=== PATIENT | male | born 1955 | race Caucasian/White ===

== ENCOUNTER 2017-11-07 10:58 | Emergency (ER) | payer MEDICARE, OTHER ==
[~2017-11-07] VITALS: Ht 177.8 cm; Wt 130.2 kg
[~2017-11-07 10:58] MED LIST: GEN0.3OS OP
[2017-11-07 12:41] LABS: BASOPHILS % (AUTO) 0.3 % (0-1); EOSINOPHILS # (AUTO) 0.3 X10'3 (0-0.9); EOSINOPHILS % (AUTO) 3.6 % (0-6); HEMOGLOBIN 17.8 g/dl (14.0-17.9); LYMPHOCYTES # (AUTO) 2.1 X10'3 (1.1-4.8); MEAN CORPUSCULAR HEMOGLOBIN 31.3 PG (27.0-31.0); MEAN CORPUSCULAR HGB CONC 33.7 % (33.0-36.5); MEAN PLATELET VOLUME 8.7 FL (7.4-10.4); MONOCYTES # (AUTO) 0.4 X10'3 (0-0.9); MONOCYTES % (AUTO) 4.4 % (2-12); NEUTROPHILS % (AUTO) 67.7 % (42-75); PLATELET COUNT 226 X10'3 (140-440); RED BLOOD COUNT 5.69 X10'6 (4.70-6.10); RED CELL DISTRIBUTION WIDTH 14.4 % (11.5-14.5); WHITE BLOOD COUNT 8.8 X10'3 (4.5-11.0)
[2017-11-07 12:50] LABS: PROTHROMBIN TIME 10.5 SECONDS (9.0-12.0)
[2017-11-07 12:55] LABS: ALANINE AMINOTRANSFERASE 80 U/L (12-78); ALBUMIN 3.6 G/DL (3.4-5.0); ALKALINE PHOSPHATASE 135 IU/L (46-116); ANION GAP 5 (8-16); ASPARTATE AMINO TRANSFERASE 39 U/L (10-37); BILIRUBIN,TOTAL 0.4 MG/DL (0.1-1.0); BLOOD UREA NITROGEN 12 MG/DL (7-18); BUN/CREATININE RATIO 10.3 (5.4-32.0); CALCIUM 8.1 MG/DL (8.5-10.1); CHLORIDE 103 MMOL/L (99-107); CREATININE 1.16 MG/DL (0.60-1.10); GLUCOSE 394 MG/DL (70-104); POTASSIUM 4.5 MMOL/L (3.5-5.1); SODIUM 137 MMOL/L (135-145); TOTAL PROTEIN 7.3 G/DL (6.4-8.2); eGFR 64 ML/MIN
[2017-11-07] MEDS ORDERED: normal saline 1000ML IV soln IVB ONE (14:15)
[2017-11-07] MEDS ORDERED: insulin regular, human 10 units/0.1 ml syringe SQ ONE ×2 (14:20)
[2017-11-07 17:14] LABS: CLARITY,URINE CLEAR (Clear); COLOR,URINE YELLOW (Yellow); GLUCOSE, URINE >=1000 mg/dl (Neg); KETONES,URINE NEGATIVE (Neg); LEUKOCYTE ESTERASE ,URINE NEGATIVE (Neg); NITRITES, URINE NEGATIVE (Neg); OCCULT BLOOD,URINE NEGATIVE (Neg); PH,URINE 5.5 (4.8-8.0); PROTEIN,URINE NEGATIVE (Neg); UROBILINOGEN,URINE 0.2 E.U/dL (0.2-1.0)
[2017-11-07 17:15] LABS: UA COLLECTION TYPE URINAL
[2017-11-07 17:20] LABS: BACTERIA,URINE NONE SEEN /HPF (Neg); MUCUS STRANDS NONE SEEN /LPF (Neg); RBC,URINE NONE SEEN /HPF (0-2); SQUAMOUS EPITHELIAL CELL,UR FEW /LPF (FEW); WBC,URINE 0-4 /HPF (0-4)
[2017-11-07] MEDS ORDERED: METF-516 PO (17:32)
[2017-11-07] MEDS ORDERED: METF500T PO (17:32)
[2017-11-07] MEDS ORDERED: NYST1000 PO (17:33)
[2017-11-07 17:56] VITALS: BP 144/78
== END 2017-11-07 17:58 | disposition home or self-care (01) ==
LOC: ER 11:00
DX: E11.65 Type 2 diabetes mellitus with hyperglycemia (principal); B37.9 Candidiasis, unspecified; I10 Essential (primary) hypertension; E78.00 Pure hypercholesterolemia, unspecified; G89.29 Other chronic pain; Z79.84 Long term (current) use of oral hypoglycemic drugs; Z79.899 Other long term (current) drug therapy
CPT/HCPCS: 36415; 80053; 81001; 82948; 85025; 85610; 96360; 96361; 96372; 99285; J1815; J7030

== ENCOUNTER 2018-02-01 11:54 | Outpatient (CLI) | payer MEDICARE ==
[~2018-02-01 11:54] MED LIST changes: +METF-516 PO
[2018-02-01 13:42] LABS: BASOPHILS % (AUTO) 0.3 % (0-1); EOSINOPHILS # (AUTO) 0.3 X10'3 (0-0.9); LYMPHOCYTES # (AUTO) 2.4 X10'3 (1.1-4.8); LYMPHOCYTES % (AUTO) 23.5 % (21-51); MEAN CORPUSCULAR HEMOGLOBIN 31.7 PG (27.0-31.0); MEAN CORPUSCULAR HGB CONC 33.8 % (33.0-36.5); MEAN CORPUSCULAR VOLUME 93.7 FL (78-98); MEAN PLATELET VOLUME 8.6 FL (7.4-10.4); MONOCYTES # (AUTO) 0.5 X10'3 (0-0.9); MONOCYTES % (AUTO) 4.7 % (2-12); NEUTROPHILS # (AUTO) 7.1 X10'3 (1.8-7.7); NEUTROPHILS % (AUTO) 68.5 % (42-75); PRE OP HEMATOCRIT 53.6 % (42.0-52.0); PRE OP PLATELET COUNT 264 X10'3 (140-440); RED BLOOD COUNT 5.71 X10'6 (4.70-6.10); RED CELL DISTRIBUTION WIDTH 14.3 % (11.5-14.5)
[2018-02-01 13:46] LABS: PRE OP HEMOGLOBIN 18.1 g/dL (14.0-17.9)
[2018-02-01] MEDS ORDERED: ROSU5TAB18 PO (13:57)
[2018-02-01] MEDS ORDERED: HYDR-3972 PO (13:57)
[2018-02-01] MEDS ORDERED: CYCL-145 PO (13:57)
[2018-02-01] MEDS ORDERED: MORP60TA66 PO (13:57)
[2018-02-01] MEDS ORDERED: TAMS0.4C32 PO (13:57)
[2018-02-01] MEDS ORDERED: ZOLP10TA5 PO (13:57)
[2018-02-01 14:00] LABS: ALBUMIN 3.7 G/DL (3.4-5.0); ALBUMIN/GLOBULIN RATIO 0.9 (1.1-1.5); ALKALINE PHOSPHATASE 91 IU/L (46-116); BLOOD UREA NITROGEN 15 MG/DL (7-18); BUN/CREATININE RATIO 14.6 (5.4-32.0); CALCIUM 8.9 MG/DL (8.5-10.1); CHLORIDE 103 MMOL/L (99-107); CREATININE 1.03 MG/DL (0.60-1.10); PRE OP ALT 54 U/L (30-65); PRE OP ANION GAP 8 (8-16); PRE OP AST 25 U/L (10-37); PRE OP BILIRUB, TOTAL 0.4 MG/DL (0.0-1.0); PRE OP SODIUM 140 MMOL/L (135-145); TOTAL CARBON DIOXIDE 28.7 MMOL/L (24-32); TOTAL PROTEIN 7.6 G/DL (6.4-8.2); eGFR 73 ML/MIN
[2018-02-01 14:04] LABS: PRE OP GLUCOSE 279 MG/DL (70-104)
[2018-02-01 15:35] LABS: HEMOGLOBIN A1C 8.8 % (4.5-6.2)
[2018-02-04] MEDS ORDERED: LEVO25TA7 PO (09:33)
[2018-02-04] MEDS ORDERED: DICL100G15 TOP (09:33)
== END 2018-02-01 23:59 | disposition home or self-care (01) ==
LOC: PRE-OP 11:54 → EDSTATUS 02-05 09:00
PROVIDERS: ATTEND Orthopaedic Surgery Hand Surgery
DX: Z01.818 Encounter for other preprocedural examination (principal); R94.31 Abnormal electrocardiogram [ECG] [EKG]; M18.0 Bilateral primary osteoarthritis of first carpometacarpal joints
CPT/HCPCS: 36415; 80053; 83036; 85025; 93005

== ENCOUNTER 2018-02-05 06:50 | Day surgery (SDC) | payer MEDICARE ==
[~2018-02-05] VITALS: Ht 188 cm; Wt 128.0 kg
[~2018-02-05 06:50] MED LIST changes: +BUPIVAcaine/PF 2.5 mg/ml (0.25%) 30ml vial ONE; +CYCL-145 PO; +DICL100G15 TOP; -GEN0.3OS OP; +HYDR-3972 PO; +LEVO25TA7 PO; +LIDOcaine 1% (10mg/ml) 2ml vial ONE; -METF-516 PO; +MORP60TA66 PO; +ROSU5TAB18 PO; +TAMS0.4C32 PO; +ZOLP10TA5 PO; +famotidine 20mg tablet PO ONE; +ringers solution, lacted 1,000 ML IV SCH
[2018-02-05 07:00] VITALS: BP 136/85
[2018-02-05] MEDS ORDERED: ceFAZolin 2gm in dextrose, iso 100 ML IV SCH (08:00)
[2018-02-05] MEDS ORDERED: ondansetron/PF 4mg/2ml inj IV PRN (08:25)
[2018-02-05] MEDS ORDERED: ringers solution, lacted 1,000 ML IV SCH (08:25)
[2018-02-05] MEDS ORDERED: morphine 4 MG/ML inj SYRINge IV PRN ×2 (08:25)
[2018-02-05] MEDS ORDERED: proCHLORperazine 10 MG/2 ml inj IV PRN (08:25)
[2018-02-05] MEDS ORDERED: meperidine/PF 50mg/ml syringe IV PRN ×3 (08:25)
[2018-02-05] MEDS ORDERED: LIDOcaine 0.5% (5mg/ml) 50ml vial ONE (08:48)
[2018-02-05] MEDS ORDERED: fentaNYL/PF 50MCG/1 ML 2ML syringe ONE ×2 (08:50→08:59)
[2018-02-05] MEDS ORDERED: midazolam 2 mg/2 ml injection ONE ×2 (08:50→09:11)
[2018-02-05] MEDS ORDERED: propofol inj 20 ML IV ONE (09:22)
[2018-02-05 09:38] VITALS: BP 135/85
[2018-02-05 09:48] VITALS: BP 157/99
[2018-02-05 09:58] VITALS: BP 154/98
== END 2018-02-05 10:18 | disposition home or self-care (01) ==
LOC: PAS 06:50
PROVIDERS: ATTEND Orthopaedic Surgery Hand Surgery
DX: M18.12 Unilateral primary osteoarthritis of first carpometacarpal joint, left hand (principal); M25.742 Osteophyte, left hand; I25.2 Old myocardial infarction; I25.10 Atherosclerotic heart disease of native coronary artery without angina pectoris; E11.9 Type 2 diabetes mellitus without complications; G89.29 Other chronic pain; J44.9 Chronic obstructive pulmonary disease, unspecified; E03.9 Hypothyroidism, unspecified; I50.9 Heart failure, unspecified; Z79.1 Long term (current) use of non-steroidal anti-inflammatories (NSAID); Z95.1 Presence of aortocoronary bypass graft; Z98.890 Other specified postprocedural states; Z79.82 Long term (current) use of aspirin; Z87.891 Personal history of nicotine dependence; Z79.899 Other long term (current) drug therapy
CPT/HCPCS: 25445; 82948; A6449; J0690; J2001; J2250; J2704; J3010; J3490; J7120; L8630; A7000

== ENCOUNTER 2018-08-13 09:22 | Day surgery (SDC) | payer MEDICARE, MEDICAID ==
[2018-08-06 14:34] LABS: BASOPHILS % (AUTO) 0.5 % (0-1); EOSINOPHILS # (AUTO) 0.4 X10'3 (0-0.9); EOSINOPHILS % (AUTO) 4.1 % (0-6); LYMPHOCYTES # (AUTO) 2.7 X10'3 (1.1-4.8); LYMPHOCYTES % (AUTO) 31.3 % (21-51); MEAN CORPUSCULAR HEMOGLOBIN 32.7 PG (27.0-31.0); MEAN CORPUSCULAR HGB CONC 34.4 % (33.0-36.5); MEAN CORPUSCULAR VOLUME 94.9 FL (78-98); MEAN PLATELET VOLUME 8.7 FL (7.4-10.4); MONOCYTES # (AUTO) 0.5 X10'3 (0-0.9); MONOCYTES % (AUTO) 5.4 % (2-12); NEUTROPHILS % (AUTO) 58.7 % (42-75); PRE OP HEMATOCRIT 49.5 % (42.0-52.0); PRE OP PLATELET COUNT 255 X10'3 (140-440); RED BLOOD COUNT 5.22 X10'6 (4.70-6.10); RED CELL DISTRIBUTION WIDTH 13.1 % (11.5-14.5)
[2018-08-06 14:47] LABS: HEMOGLOBIN A1C 8.8 % (4.5-6.2)
[2018-08-06 14:48] LABS: ALBUMIN 3.5 G/DL (3.4-5.0); ALKALINE PHOSPHATASE 92 IU/L (46-116); BLOOD UREA NITROGEN 13 MG/DL (7-18); BUN/CREATININE RATIO 12.4 (5.4-32.0); CALCIUM 8.6 MG/DL (8.5-10.1); CHLORIDE 102 MMOL/L (99-107); CREATININE 1.05 MG/DL (0.60-1.10); PRE OP ALT 48 U/L (30-65); PRE OP ANION GAP 9 (8-16); PRE OP AST 23 U/L (10-37); PRE OP BILIRUB, TOTAL 0.3 MG/DL (0.0-1.0); PRE OP POTASSIUM 3.9 MMOL/L (3.4-5.1); PRE OP SODIUM 139 MMOL/L (135-145); TOTAL CARBON DIOXIDE 28.2 MMOL/L (24-32); TOTAL PROTEIN 7.1 G/DL (6.4-8.2); eGFR 71 ML/MIN
[2018-08-06 14:55] LABS: PRE OP GLUCOSE 268 MG/DL (70-104)
[~2018-08-13] VITALS: Ht 188 cm; Wt 129.3 kg
[~2018-08-13 09:22] MED LIST changes: -BUPIVAcaine/PF 2.5 mg/ml (0.25%) 30ml vial ONE; -DICL100G15 TOP; -HYDR-3972 PO; -LIDOcaine 1% (10mg/ml) 2ml vial ONE; -MORP60TA66 PO; +ROSU5TAB11 PO; -ROSU5TAB18 PO; +cefazolin/dext.iso 2gm/100 ML IV ONE
[2018-08-13] MEDS ORDERED: LIDOcaine 0.5% (5mg/ml) 50ml vial ONE (11:19)
[2018-08-13 11:56] VITALS: BP 143/86
[2018-08-13 11:57] VITALS: BP 143/86
[2018-08-13] MEDS ORDERED: ringers solution, lacted 1,000 ML IV SCH (12:01)
[2018-08-13] MEDS ORDERED: morphine 4 MG/ML inj SYRINge IV PRN ×2 (12:05)
[2018-08-13] MEDS ORDERED: meperidine/PF 25mg/ml syringe IV PRN ×3 (12:05)
[2018-08-13] MEDS ORDERED: ondansetron/PF 4mg/2ml inj IV PRN (12:05)
[2018-08-13] MEDS ORDERED: proCHLORperazine 10 MG/2 ml inj IV PRN (12:05)
[2018-08-13] MEDS ORDERED: BUPIVAcaine/PF 2.5mg/ml (0.25%) 10ml vial ONE (12:13)
[2018-08-13] MEDS ORDERED: fentaNYL/PF 50MCG/1 ML 2ML syringe ONE (12:18)
[2018-08-13] MEDS ORDERED: MIDAZolam 5mg/5ml vial ONE (12:18)
[2018-08-13 13:25] VITALS: BP 133/88
[2018-08-13 13:35] VITALS: BP 159/76
[2018-08-13] MEDS ORDERED: HYDROcodone/acetaminophen 10/325mg tab PO ONE (13:40)
[2018-08-13 13:45] VITALS: BP 143/77
[2018-08-13 13:55] VITALS: BP 139/74
== END 2018-08-13 13:55 | disposition home or self-care (01) ==
LOC: PAS 09:22
PROVIDERS: ATTEND Orthopaedic Surgery Hand Surgery
DX: M18.11 Unilateral primary osteoarthritis of first carpometacarpal joint, right hand (principal); I25.10 Atherosclerotic heart disease of native coronary artery without angina pectoris; Z87.891 Personal history of nicotine dependence; Z95.1 Presence of aortocoronary bypass graft; Z98.890 Other specified postprocedural states
CPT/HCPCS: 25447; 36415; 80053; 82948; 83036; 85025; 93005; A6449; J0690; J2001; J2250; J3010; J3490; J7120; L8630; A7000

== ENCOUNTER 2021-02-15 05:01 | Day surgery (SDC) | payer MEDICARE ==
[2021-02-08 15:28] LABS: BASOPHILS % (AUTO) 0.3 % (0-1); EOSINOPHILS # (AUTO) 0.2 X10'3 (0-0.9); EOSINOPHILS % (AUTO) 1.9 % (0-6); LYMPHOCYTES # (AUTO) 2.2 X10'3 (1.1-4.8); LYMPHOCYTES % (AUTO) 25.9 % (21-51); MEAN CORPUSCULAR HEMOGLOBIN 31.1 PG (27.0-31.0); MEAN CORPUSCULAR HGB CONC 33.2 g/dL (33.0-36.5); MEAN CORPUSCULAR VOLUME 93.7 FL (78-98); MEAN PLATELET VOLUME 8.4 FL (7.4-10.4); MONOCYTES # (AUTO) 0.5 X10'3 (0-0.9); MONOCYTES % (AUTO) 5.5 % (2-12); NEUTROPHILS # (AUTO) 5.7 X10'3 (1.8-7.7); NEUTROPHILS % (AUTO) 66.4 % (42-75); PRE OP HEMATOCRIT 51.5 % (42.0-52.0); PRE OP HEMOGLOBIN 17.1 g/dL (14.0-17.9); PRE OP PLATELET COUNT 276 X10'3 (140-440); RED CELL DISTRIBUTION WIDTH 13.9 % (11.5-14.5)
[2021-02-08 15:41] LABS: ALBUMIN 3.9 G/DL (3.4-5.0); ALKALINE PHOSPHATASE 95 IU/L (46-116); BLOOD UREA NITROGEN 12 MG/DL (7-18); BUN/CREATININE RATIO 11.7 (5.4-32.0); CALCIUM 8.7 MG/DL (8.5-10.1); CHLORIDE 105 MMOL/L (99-107); CREATININE 1.03 MG/DL (0.60-1.10); PRE OP ALT 54 U/L (30-65); PRE OP ANION GAP 6 (8-16); PRE OP BILIRUB, TOTAL 0.3 MG/DL (0.0-1.0); PRE OP POTASSIUM 3.9 MMOL/L (3.4-5.1); PRE OP SODIUM 142 MMOL/L (135-145); TOTAL CARBON DIOXIDE 30.6 MMOL/L (24-32); TOTAL PROTEIN 7.9 G/DL (6.4-8.2); eGFR 72 ML/MIN
[2021-02-08 15:57] LABS: PRE OP GLUCOSE 206 MG/DL (70-104)
[2021-02-08 15:58] LABS: CLARITY,URINE CLEAR (Clear); COLOR,URINE YELLOW (Yellow); GLUCOSE, URINE >=1000 mg/dl (Neg); KETONES,URINE NEGATIVE (Neg); LEUKOCYTE ESTERASE ,URINE NEGATIVE (Neg); NITRITES, URINE NEGATIVE (Neg); OCCULT BLOOD,URINE NEGATIVE (Neg); PH,URINE 5.5 (4.8-8.0); PROTEIN,URINE 100 mg/dl (Neg); UROBILINOGEN,URINE 0.2 E.U/dL (0.2-1.0)
[2021-02-08 15:59] LABS: PRE OP AST 25 U/L (10-37)
[2021-02-08 15:59] LABS: UA COLLECTION TYPE CLN CATCH MIDSTREAM
[2021-02-08 16:04] LABS: BACTERIA,URINE NONE SEEN /HPF (Neg); MUCUS STRANDS NONE SEEN /LPF (Neg); RBC,URINE NONE SEEN /HPF (0-2); SQUAMOUS EPITHELIAL CELL,UR FEW /LPF (FEW); WBC,URINE NONE SEEN /HPF (0-4)
[2021-02-15] VITALS (7 sets, daily range): BP systolic 129–141; BP diastolic 55–80
[~2021-02-15] VITALS: Ht 185.4 cm; Wt 117.0 kg
[~2021-02-15 05:01] MED LIST changes: +METF-900 PO; +MORP30TA PO; -ROSU5TAB11 PO; +ROSU5TAB12 PO; -cefazolin/dext.iso 2gm/100 ML IV ONE; -famotidine 20mg tablet PO ONE
[2021-02-15] MEDS ORDERED: cefazolin/dext.iso 2gm/100ml 100 ML IV ONE (05:30)
[2021-02-15] MEDS ORDERED: famotidine 20mg tablet PO ONE (05:30)
[2021-02-15] MEDS ORDERED: insulin regular, human U-100 3ml vial - multi-dose SQ ONE (06:50)
[2021-02-15] MEDS ORDERED: cloNIDine hcl/PF 100mcg/ml inj ONE (07:02)
[2021-02-15] MEDS ORDERED: midazolam 1 mg/ML 2ml injection ONE (07:07)
[2021-02-15] MEDS ORDERED: fentaNYL/PF 50MCG/1 ML 2ML syringe ONE (07:24)
[2021-02-15] MEDS ORDERED: dexamethasone sod phosphate 4mg/ml inj. ONE (07:26)
[2021-02-15] MEDS ORDERED: ondansetron/PF 4mg/2ml inj ONE (07:26)
[2021-02-15] MEDS ORDERED: 0.9 % SODIUM CHLORIDE 10 ML VIAL ONE ×2 (07:27)
[2021-02-15] MEDS ORDERED: LIDOcaine 2% (20mg/ml) 5ml vial ONE (07:27)
[2021-02-15] MEDS ORDERED: propofol inj 20 ML IV ONE (07:27)
[2021-02-15] MEDS ORDERED: ROPIVAcaine 0.5% (5mg/ml) 30ml vial ONE (07:27)
[2021-02-15] MEDS ORDERED: hydrALAZINE 20mg/ml inj. IV PRN (08:00)
[2021-02-15] MEDS ORDERED: meperidine/PF 25mg/ml syringe IV PRN ×3 (08:00)
[2021-02-15] MEDS ORDERED: acetaminophen 1,000mg/100ml IV 100 ML IV PRN (08:00)
[2021-02-15] MEDS ORDERED: ringers solution, lacted 1,000 ML IV SCH (08:00)
[2021-02-15] MEDS ORDERED: proCHLORperazine 10 MG/2 ml inj IV PRN (08:00)
[2021-02-15] MEDS ORDERED: labetalol 20mg/4ml (5mg/ml) syringe IV PRN (08:00)
[2021-02-15] MEDS ORDERED: morphine 4 MG/ML inj SYRINge IV PRN (08:00)
[2021-02-15] MEDS ORDERED: morphine 2 MG/ML inj. syringe IV PRN (08:00)
[2021-02-15] MEDS ORDERED: ondansetron/PF 4mg/2ml inj IV PRN (08:00)
[2021-02-15] MEDS ORDERED: bacitracin 15gm ointment TP ONE (08:38)
--- NOTE | 2021-02-15 09:12 | NUR ---
Received from OR via [facility] , accompanied by Anesthesiologist [id number] and report given by Anesthesiolgist. PATIENT IWTH 20G PIV IN LEFT HAND RUNNING LR AT 100. DENIES PAIN AT THIS TIME. LEFT FOOT WITH 4 PINS AND JERGENS BALLS. + CAP REFILL, PWD TOES. NO DRAINAGE TO MARIBEL BANDAGE OR TOES. ELEVATED UPON ARRIVAL. Addendum: 02/15/21 at 0924 by Jaylen Braun RN, RN Amended: Links added.
--- NOTE | 2021-02-15 09:52 | NUR ---
ALL DISCHARGE CRITERIA HAS BEEN MET. VSS, PAIN AT A TOLERABLE LEVEL, VOIDING AND ABLE TO SAFELY AMBULATE AND TRANSFER SELF. IV TAKEN OUT WITHOUT ANY COMPLICATIONS. ALL DISCHARGE INSTRUCTIONS COVERED WITH PATIENT AND ALL QUESTIONS ANSWERED. PATIENT TAKEN OUT VIA WHEELCHAIR TO PERSONAL VEHICLE WHERE FAMILY/FRIEND DROVE PATIENT HOME. GEAR HOBBER DONNED BOOT. PATIENT SHOWED GOOD UNDERSTANDING OF PWB STATUS AND WAS ABLE TO SAFELY AMBULATE FROM GURNEY TO AND WC TO CAR WHERE FAMILY DROVE HIM HOME. Addendum: 02/15/21 at 0955 by Jaylen Braun RN, RN Amended: Links added.
== END 2021-02-15 09:52 | disposition home or self-care (01) ==
LOC: PAS 05:01
PROVIDERS: ATTEND Podiatrist Foot & Ankle Surgery
DX: M20.42 Other hammer toe(s) (acquired), left foot (principal); M77.42 Metatarsalgia, left foot; M24.575 Contracture, left foot; M19.072 Primary osteoarthritis, left ankle and foot; M19.071 Primary osteoarthritis, right ankle and foot; I25.10 Atherosclerotic heart disease of native coronary artery without angina pectoris; M18.0 Bilateral primary osteoarthritis of first carpometacarpal joints; E11.9 Type 2 diabetes mellitus without complications; G89.18 Other acute postprocedural pain; Z20.822 Contact with and (suspected) exposure to COVID-19; Z79.82 Long term (current) use of aspirin; Z79.899 Other long term (current) drug therapy; Z98.890 Other specified postprocedural states; Z87.891 Personal history of nicotine dependence; Z79.84 Long term (current) use of oral hypoglycemic drugs
CPT/HCPCS: 28112; 28270; 28285; 36415; 64445; 64447; 73620; 76000; 76942; 80053; 81001; 82948; 85025; 93005; A6223; C1713; J0735; J1100; J2001; J2250; J2405; J2704; J3010; J7120; U0003; A4215; A4618; A6253; A6449; A7000; J1815; J2795

== ENCOUNTER 2021-07-12 08:00 | Outpatient (CLI) | payer MEDICARE ==
[~2021-07-12 08:00] MED LIST changes: -ringers solution, lacted 1,000 ML IV SCH
[2021-07-12 12:05] LABS: BASOPHILS % (AUTO) 0.3 % (0-1); EOSINOPHILS # (AUTO) 0.1 X10'3 (0-0.9); EOSINOPHILS % (AUTO) 1.5 % (0-6); LYMPHOCYTES # (AUTO) 1.7 X10'3 (1.1-4.8); LYMPHOCYTES % (AUTO) 26.8 % (21-51); MEAN CORPUSCULAR HEMOGLOBIN 31.7 PG (27.0-31.0); MEAN CORPUSCULAR HGB CONC 34.2 g/dL (33.0-36.5); MEAN CORPUSCULAR VOLUME 92.7 FL (78-98); MEAN PLATELET VOLUME 8.6 FL (7.4-10.4); MONOCYTES # (AUTO) 0.4 X10'3 (0-0.9); MONOCYTES % (AUTO) 5.7 % (2-12); NEUTROPHILS # (AUTO) 4.2 X10'3 (1.8-7.7); NEUTROPHILS % (AUTO) 65.7 % (42-75); PRE OP HEMATOCRIT 46.7 % (42.0-52.0); PRE OP PLATELET COUNT 264 X10'3 (140-440); RED BLOOD COUNT 5.04 X10'6 (4.70-6.10); RED CELL DISTRIBUTION WIDTH 13.7 % (11.5-14.5)
[2021-07-12 12:13] LABS: CLARITY,URINE CLEAR (Clear); COLOR,URINE YELLOW (Yellow); UA COLLECTION TYPE CLN CATCH MIDSTREAM
[2021-07-12 12:16] LABS: GLUCOSE, URINE >=1000 mg/dl (Neg); KETONES,URINE NEGATIVE (Neg); LEUKOCYTE ESTERASE ,URINE NEGATIVE (Neg); NITRITES, URINE NEGATIVE (Neg); OCCULT BLOOD,URINE NEGATIVE (Neg); PROTEIN,URINE NEGATIVE (Neg); UROBILINOGEN,URINE 0.2 E.U/dL (0.2-1.0)
[2021-07-12 12:20] LABS: ALBUMIN 3.3 G/DL (3.4-5.0); ALBUMIN/GLOBULIN RATIO 0.9 (1.1-1.5); ALKALINE PHOSPHATASE 116 IU/L (46-116); BLOOD UREA NITROGEN 13 MG/DL (7-18); BUN/CREATININE RATIO 14.1 (5.4-32.0); CALCIUM 7.9 MG/DL (8.5-10.1); CHLORIDE 102 MMOL/L (99-107); CREATININE 0.92 MG/DL (0.60-1.10); PRE OP ALT 44 U/L (30-65); PRE OP ANION GAP 9 (8-16); PRE OP AST 21 U/L (10-37); PRE OP BILIRUB, TOTAL 0.3 MG/DL (0.0-1.0); PRE OP POTASSIUM 4.1 MMOL/L (3.4-5.1); PRE OP SODIUM 136 MMOL/L (135-145); SQUAMOUS EPITHELIAL CELL,UR FEW /LPF (FEW); TOTAL CARBON DIOXIDE 24.9 MMOL/L (24-32); TOTAL PROTEIN 7.1 G/DL (6.4-8.2); eGFR 82 ML/MIN
[2021-07-12 12:21] LABS: BACTERIA,URINE FEW /HPF (Neg); RBC,URINE 0-2 /HPF (0-2); WBC,URINE 0-4 /HPF (0-4)
[2021-07-12 12:29] LABS: PRE OP GLUCOSE 426 MG/DL (70-104)
== END 2021-07-12 23:59 | disposition home or self-care (01) ==
LOC: LAB 08:00 → EDSTATUS 07-19 07:30
PROVIDERS: ATTEND Podiatrist Foot & Ankle Surgery
DX: Z01.812 Encounter for preprocedural laboratory examination (principal); Z20.822 Contact with and (suspected) exposure to COVID-19
CPT/HCPCS: 36415; 80053; 81001; 85025; U0003; U0005

== ENCOUNTER 2022-02-07 07:57 | Day surgery (SDC) | payer MEDICARE ==
[2022-01-30 16:10] LABS: BASOPHILS % (AUTO) 0.3 % (0-1); EOSINOPHILS # (AUTO) 0.2 X10'3 (0-0.9); EOSINOPHILS % (AUTO) 2.2 % (0-6); LYMPHOCYTES # (AUTO) 2.3 X10'3 (1.1-4.8); LYMPHOCYTES % (AUTO) 27.8 % (21-51); MEAN CORPUSCULAR HEMOGLOBIN 31.9 PG (27.0-31.0); MEAN CORPUSCULAR HGB CONC 34.8 g/dL (33.0-36.5); MEAN CORPUSCULAR VOLUME 91.6 FL (78-98); MEAN PLATELET VOLUME 8.6 FL (7.4-10.4); MONOCYTES # (AUTO) 0.4 X10'3 (0-0.9); MONOCYTES % (AUTO) 4.6 % (2-12); NEUTROPHILS # (AUTO) 5.5 X10'3 (1.8-7.7); NEUTROPHILS % (AUTO) 65.1 % (42-75); PRE OP HEMATOCRIT 47.2 % (42.0-52.0); PRE OP HEMOGLOBIN 16.4 g/dL (14.0-17.9); PRE OP PLATELET COUNT 277 X10'3 (140-440); RED BLOOD COUNT 5.15 X10'6 (4.70-6.10); RED CELL DISTRIBUTION WIDTH 13.6 % (11.5-14.5)
[2022-01-30 16:11] LABS: CLARITY,URINE CLEAR (Clear); COLOR,URINE YELLOW (Yellow); GLUCOSE, URINE >=1000 mg/dl (Neg); KETONES,URINE TRACE mg/dl (Neg); LEUKOCYTE ESTERASE ,URINE NEGATIVE (Neg); NITRITES, URINE NEGATIVE (Neg); OCCULT BLOOD,URINE NEGATIVE (Neg); PROTEIN,URINE NEGATIVE (Neg); UROBILINOGEN,URINE 0.2 E.U/dL (0.2-1.0)
[2022-01-30 16:15] LABS: UA COLLECTION TYPE CLN CATCH MIDSTREAM
[2022-01-30 16:24] LABS: MUCUS STRANDS FEW /LPF (Neg); SQUAMOUS EPITHELIAL CELL,UR MODERATE /LPF (FEW)
[2022-01-30 16:25] LABS: BACTERIA,URINE FEW /HPF (Neg); RBC,URINE 0-2 /HPF (0-2); WBC,URINE 0-4 /HPF (0-4)
[2022-01-30 16:35] LABS: ALBUMIN/GLOBULIN RATIO 1.1 (1.1-1.5); ALKALINE PHOSPHATASE 95 IU/L (46-116); BLOOD UREA NITROGEN 15 MG/DL (7-18); BUN/CREATININE RATIO 18.3 (5.4-32.0); CALCIUM 8.8 MG/DL (8.5-10.1); CHLORIDE 101 MMOL/L (99-107); CREATININE 0.82 MG/DL (0.60-1.10); PRE OP ALT 61 U/L (30-65); PRE OP ANION GAP 12 (8-16); PRE OP AST 25 U/L (10-37); PRE OP BILIRUB, TOTAL 0.3 MG/DL (0.0-1.0); PRE OP POTASSIUM 3.7 MMOL/L (3.4-5.1); PRE OP SODIUM 138 MMOL/L (135-145); TOTAL CARBON DIOXIDE 25.5 MMOL/L (24-32); TOTAL PROTEIN 7.8 G/DL (6.4-8.2); eGFR > 90 ML/MIN
[2022-01-30 16:39] LABS: PRE OP GLUCOSE 250 MG/DL (70-104)
[~2022-02-07] VITALS: Ht 188 cm; Wt 111.6 kg
[2022-02-07] VITALS (8 sets, daily range): BP systolic 123–158; BP diastolic 60–95
[~2022-02-07 07:57] MED LIST changes: +HYDR-3973 PO; +cefazolin/dext.iso 2gm/50ml IV ONE; +famotidine 20mg tablet PO ONE; +ringers solution, lacted 1,000 ML IV SCH; +sevoflurane 250ml liquid IH ONE
[2022-02-07] MEDS ORDERED: cloNIDine hcl/PF 100mcg/ml inj ONE (10:10)
[2022-02-07] MEDS ORDERED: fentaNYL /PF 50mcg/ml 5ml ampule ONE (10:16)
[2022-02-07] MEDS ORDERED: midazolam 1 mg/ML 2ml injection ONE (10:16)
[2022-02-07] MEDS ORDERED: propofol inj 20 ML IV ONE (10:37)
[2022-02-07] MEDS ORDERED: ROPIVAcaine 0.5% (5mg/ml) 30ml vial ONE (10:37)
[2022-02-07] MEDS ORDERED: ondansetron/PF 4mg/2ml inj ONE (10:37)
[2022-02-07] MEDS ORDERED: LIDOcaine 2% (20mg/ml) 5ml vial ONE (10:37)
[2022-02-07] MEDS ORDERED: dexamethasone sod phosphate 4mg/ml inj. ONE (10:37)
[2022-02-07] MEDS ORDERED: ePHEDrine 50MG/ML INJ. ONE (11:00)
[2022-02-07] MEDS ORDERED: 0.9 % SODIUM CHLORIDE 10 ML VIAL ONE (11:00)
[2022-02-07] MEDS ORDERED: bacitracin 15gm ointment TP ONE (11:39)
--- NOTE | 2022-02-07 11:50 | NUR ---
Received from OR via [facility] , accompanied by Anesthesiologist DR BAI and report given by Anesthesiolgist. PT PRESENTS WITH 20G LEFT FOREARM, LEFT FOOT DRESSING CLEAN DRY AND INTACT, VSS. Addendum: 02/07/22 at 1208 by Leny Braun RN, RN Amended: Links added.
[2022-02-07] MEDS ORDERED: meperidine/PF 25mg/ml syringe IV PRN ×3 (11:55)
[2022-02-07] MEDS ORDERED: proCHLORperazine 10 MG/2 ml inj IV PRN (11:55)
[2022-02-07] MEDS ORDERED: morphine 2 MG/ML inj. syringe IV PRN (11:55)
[2022-02-07] MEDS ORDERED: hydrALAZINE 20mg/ml inj. IV PRN (11:55)
[2022-02-07] MEDS ORDERED: labetalol 20mg/4ml (5mg/ml) syringe IV PRN (11:55)
[2022-02-07] MEDS ORDERED: ringers solution, lacted 1,000 ML IV SCH (11:55)
[2022-02-07] MEDS ORDERED: ondansetron/PF 4mg/2ml inj IV PRN (11:55)
[2022-02-07] MEDS ORDERED: morphine 4 MG/ML inj SYRINge IV PRN (11:55)
[2022-02-07] MEDS ORDERED: acetaminophen 1,000mg/100ml IV 100 ML IV PRN (11:55)
--- NOTE | 2022-02-07 12:50 | NUR ---
PT BOOT PLACED ON LEFT FOOT ADVISED NO WEIGHT BEARING. HAVE REVIEWED D/C INSTRUCTIONS WITH PATIENT AND THEY HAVE VERBALIZED UNDERSTANDING OF INSTRUCTIONS. PATIENT D/C HOME WITH ALL BELONGINGS AND FAMILY GAVE TRANSPORT Addendum: 02/07/22 at 1315 by Leny Braun RN, RN Amended: Links added.
== END 2022-02-07 12:50 | disposition home or self-care (01) ==
LOC: PAS 07:57
PROVIDERS: ATTEND Podiatrist Foot & Ankle Surgery
DX: M19.072 Primary osteoarthritis, left ankle and foot (principal); M89.8X7 Other specified disorders of bone, ankle and foot; I25.10 Atherosclerotic heart disease of native coronary artery without angina pectoris; E11.9 Type 2 diabetes mellitus without complications; M81.0 Age-related osteoporosis without current pathological fracture; M19.042 Primary osteoarthritis, left hand; M19.071 Primary osteoarthritis, right ankle and foot; M54.32 Sciatica, left side; N40.0 Benign prostatic hyperplasia without lower urinary tract symptoms; G89.29 Other chronic pain; Z20.822 Contact with and (suspected) exposure to COVID-19; Z79.899 Other long term (current) drug therapy; Z87.891 Personal history of nicotine dependence; Z79.82 Long term (current) use of aspirin; Z98.890 Other specified postprocedural states; Z95.1 Presence of aortocoronary bypass graft; Z82.49 Family history of ischemic heart disease and other diseases of the circulatory system
CPT/HCPCS: 20900; 28113; 28740; 36415; 64450; 73620; 76000; 80053; 81001; 82948; 85025; 93005; A6223; C1713; C1776; J0735; J1100; J2250; J2405; J2704; J2795; J3010; J3490; J7030; J7120; U0003; U0005; Z7506; Z7508; Z7512; A4618; A6253; A6449; A7000